=== PATIENT | female | born 1970 | race Two or more races ===

== ENCOUNTER 2020-08-25 09:36 | Emergency (ER) | payer MEDICAID, OTHER ==
[~2020-08-25] VITALS: Ht 154.9 cm; Wt 77.1 kg
[2020-08-25 09:41] VITALS: BP 121/79
[2020-08-25] MEDS ORDERED: TETANUS-DIPTH-ACEL PERTUSSIS 0.5ML SYR Tdap IM ONE (10:15)
== END 2020-08-25 10:54 | disposition home or self-care (01) ==
LOC: ER 09:36
DX: S60.512A Abrasion of left hand, initial encounter (principal); Z88.0 Allergy status to penicillin; X58.XXXA Exposure to other specified factors, initial encounter; Y93.89 Activity, other specified; Y92.89 Other specified places as the place of occurrence of the external cause; Y99.8 Other external cause status